=== PATIENT | female | born 1950 | race Caucasian/White ===

== ENCOUNTER 2021-11-13 23:17 | Inpatient (IN) | payer OTHER, MEDICARE ==
[~2021-11-13 23:17] MED LIST: Iopamidol-370 76% 500 ML 1 ML ONE
[2021-11-13 23:33] LABS: #Basophils 0.1 thou/uL (0.0-0.2); #Eosinphils 0.1 thou/uL (0.0-0.7); #Lymphocytes 3.2 thou/uL (1.20-3.40); #Monocytes 1.1 thou/uL (0.11-0.59); #Neutrophils 10.6 thou/uL (1.40-6.50); %Basophils 0.7 % (0.0-1.0); %Eosinophils 0.8 % (0.0-10.0); %Lymphocytes 21.2 % (21.0-51.0); %Monocytes 7.1 % (0.0-10.0); %Neutrophils 70.2 % (42.0-75.0); Hemoglobin 12.5 g/dL (12.0-16.0); Mean Corpuscular HGB CONC 33.9 g/dL (32.0-36.0); Mean Corpuscular Hemoglobin 32.9 pg (27.0-31.0); Mean Platelet Volume 5.9 fL (7.4-10.4); Platelet Count 297 thou/uL (130-400); RBC Distribution Width 12.5 % (11.5-14.5); White Blood Cell (WBC) Count 15.1 thou/uL (4.8-10.8)
[2021-11-13] MEDS ORDERED: Ketamine 50 MG/ML (10ML VIAL) ONE (23:54)
[2021-11-13 23:55] LABS: ALT (SGPT) 30 U/L (8-55); AST (SGOT) 37 U/L (5-34); Albumin 3.9 g/dL (3.4-4.8); Alkaline Phosphatase 95 U/L (40-110); Anion Gap 18 mmol/L (10-20); BUN (Urea Nitrogen) 15 mg/dL (9.8-20.1); Bilirubin, Total 0.4 mg/dL (0.2-1.2); Calc. Creatinine Clearance 0 mL/min (70-130); Calcium 9.3 mg/dL (7.8-10.44); Carbon Dioxide 23 mmol/L (23-31); Chloride 97 mmol/L (98-107); Globulin 2.9 g/dL (2.4-3.5); Glucose 134 mg/dL (80-115); Lipase 12 U/L (8-78); Potassium 4.1 mmol/L (3.5-5.1); Protein, Total 6.8 g/dL (5.8-8.1); Sodium 134 mmol/L (136-145)
[2021-11-14] MEDS ORDERED: Lorazepam 2 MG/ML VIAL ONE (00:05)
[2021-11-14] MEDS ORDERED: Morphine 4 MG/ML VIAL ONE (00:37)
[2021-11-14] MEDS ORDERED: Ondansetron PF 4 MG/2 ML Vial ONE (00:38)
[2021-11-14] MEDS ORDERED: hydrALAZINE 20 MG/ML VIAL SLOW IVP PRN (01:22)
[2021-11-14] MEDS ORDERED: traMADol HCl 50 MG TAB PO PRN (01:26)
[2021-11-14] MEDS ORDERED: Sodium Chloride 0.9% 1,000 ML IV SCH ×3 (01:30→12:45)
[2021-11-14] MEDS ORDERED: Ketorolac Tromethamine 30 MG/ML VIAL IVP SCH ×3 (01:30→18:00)
[2021-11-14] MEDS ORDERED: Hydrocortisone Sod Succ/PF 100 mg/2 ml Vial IVP SCH ×2 (01:45→10:00)
[2021-11-14] MEDS ORDERED: Cyclobenzaprine 10 MG TAB ONE (01:47)
[2021-11-14] MEDS ORDERED: Ketorolac Tromethamine 30 MG/ML VIAL ONE (01:47)
[2021-11-14] MEDS: Ondansetron PF 4 MG/2 ML Vial IVP PRN ×3 (04:32→20:11)
[2021-11-14] MEDS ORDERED: traMADol HCl 50 MG TAB PO SCH ×2 (06:00→12:45)
[2021-11-14 06:02] LABS: Lactic Acid 1.6 mmol/L (0.5-2.2)
[2021-11-14 06:08] LABS: Anion Gap 14 mmol/L (10-20); BUN (Urea Nitrogen) 20 mg/dL (9.8-20.1); Calc. Creatinine Clearance 49 mL/min (70-130); Calcium 8.2 mg/dL (7.8-10.44); Carbon Dioxide 27 mmol/L (23-31); Chloride 98 mmol/L (98-107); Glucose 142 mg/dL (80-115); Magnesium 1.5 mg/dL (1.6-2.6); Phosphorus 3.5 mg/dL (2.3-4.7); Potassium 4.8 mmol/L (3.5-5.1); Sodium 134 mmol/L (136-145)
[2021-11-14] MEDS: Cyclobenzaprine 10 MG TAB PO PRN ×2 (06:12→21:22)
[2021-11-14] MEDS: Acetaminophen 500 MG TAB PO SCH ×2 (06:13→11:32)
[2021-11-14 06:27] LABS: #Lymphocytes 0.8 thou/uL (1.20-3.40); #Monocytes 0.8 thou/uL (0.11-0.59); #Neutrophils 10.6 thou/uL (1.40-6.50); %Basophils 0.1 % (0.0-1.0); %Eosinophils 0.1 % (0.0-10.0); %Lymphocytes 6.6 % (21.0-51.0); %Monocytes 6.1 % (0.0-10.0); Mean Corpuscular HGB CONC 34.3 g/dL (32.0-36.0); Mean Corpuscular Hemoglobin 33.1 pg (27.0-31.0); Mean Corpuscular Volume 96.4 fL (78.0-98.0); Mean Platelet Volume 5.9 fL (7.4-10.4); Platelet Count 217 thou/uL (130-400); RBC Distribution Width 12.2 % (11.5-14.5); Red Blood Cell (RBC) Count 2.72 mill/uL (4.20-5.40); White Blood Cell (WBC) Count 12.2 thou/uL (4.8-10.8)
[2021-11-14 06:54] LABS: #Lymphocytes 0.7 thou/uL (1.20-3.40); #Monocytes 0.7 thou/uL (0.11-0.59); #Neutrophils 10.6 thou/uL (1.40-6.50); %Basophils 0.1 % (0.0-1.0); %Eosinophils 0.3 % (0.0-10.0); %Lymphocytes 5.9 % (21.0-51.0); %Monocytes 5.7 % (0.0-10.0); Hemoglobin 7.9 g/dL (12.0-16.0); Mean Corpuscular HGB CONC 33.6 g/dL (32.0-36.0); Mean Corpuscular Hemoglobin 32.6 pg (27.0-31.0); Mean Corpuscular Volume 97.1 fL (78.0-98.0); Mean Platelet Volume 6.5 fL (7.4-10.4); Platelet Count 206 thou/uL (130-400); RBC Distribution Width 12.2 % (11.5-14.5); Red Blood Cell (RBC) Count 2.42 mill/uL (4.20-5.40); White Blood Cell (WBC) Count 12.1 thou/uL (4.8-10.8)
[2021-11-14 07:21] LABS: Bacteria/HPF None Seen HPF (None Seen); Bilirubin Negative (Negative); Blood, Urine Negative (Negative); Clarity Clear (Clear); Glucose, Urine (Dipstick) Normal (Negative); Ketone, Urine Negative (Negative); Leukocyte Negative Leu/uL (Negative); Nitrite Negative (Negative); Protein, Urine (Dipstick) Negative (Neg-Trace); RBC/HPF 0-3 HPF (0-3); Specific Gravity, Urine 1.028 (1.002-1.036); Squamous Epithelial 0-3 HPF (0-3); Urobilinogen Normal mg/dL (Less than 2); WBC/HPF 0-3 HPF (0-3)
[2021-11-14 07:33] LABS: Urine Culture Reflex No No
[2021-11-14] MEDS: Sodium Chloride 0.9% 1,000 ML IV SCH ×3 (08:30→13:05)
[2021-11-14] MEDS ORDERED: HYDROcodone/Acetaminophen 7.5/325 mg Tablet PO PRN (08:36)
[2021-11-14 08:41] LABS: #Lymphocytes 0.8 thou/uL (1.20-3.40); #Monocytes 0.7 thou/uL (0.11-0.59); #Neutrophils 8.5 thou/uL (1.40-6.50); %Basophils 0.1 % (0.0-1.0); %Eosinophils 0.2 % (0.0-10.0); %Lymphocytes 8.3 % (21.0-51.0); %Monocytes 7.1 % (0.0-10.0); %Neutrophils 84.4 % (42.0-75.0); Mean Corpuscular HGB CONC 33.8 g/dL (32.0-36.0); Mean Corpuscular Volume 97.6 fL (78.0-98.0); Mean Platelet Volume 6.2 fL (7.4-10.4); Platelet Count 168 thou/uL (130-400); RBC Distribution Width 12.3 % (11.5-14.5); White Blood Cell (WBC) Count 10.1 thou/uL (4.8-10.8)
[2021-11-14] MEDS: Morphine 2 MG/ML VIAL SLOW IVP PRN ×3 (08:44→23:57)
[2021-11-14] MEDS ORDERED: Magnesium Sulfate 3 GM in Sodium Chloride 0.9% 100 ML IVPB SCH (09:00)
[2021-11-14] MEDS ORDERED: Famotidine 40 MG/4 ML VIAL SLOW IVP SCH (09:00)
[2021-11-14] MEDS ORDERED: Gabapentin 100 MG CAP PO SCH ×2 (09:00)
[2021-11-14] MEDS: Polyethylene Glycol 3350 17 GM Packet PO SCH (09:12)
[2021-11-14] MEDS: Gabapentin 300 MG CAP PO SCH ×3 (09:12→20:15)
[2021-11-14] MEDS: Senokot S 8.6-50 MG TAB PO SCH ×2 (09:12→20:11)
[2021-11-14 09:43] LABS: INR-International Normal Ratio 1.4; PTT 36.1 sec (22.9-36.1); Prothrombin Time 17.2 sec (12.0-14.7)
[2021-11-14] MEDS: Promethazine HCl 25 MG/ML VIAL IM PRN (11:24)
[2021-11-14] MEDS: Scopolamine 1.5 mg/72 hour Patch TD SCH (11:24)
[2021-11-14 11:43] LABS: Hemoglobin 8.9 g/dL (12.0-16.0); Mean Corpuscular Hemoglobin 33.3 pg (27.0-31.0); Platelet Count 129 thou/uL (130-400); RBC Distribution Width 12.6 % (11.5-14.5); Red Blood Cell (RBC) Count 2.66 mill/uL (4.20-5.40); White Blood Cell (WBC) Count 8.9 thou/uL (4.8-10.8)
[2021-11-14 11:44] LABS: #Eosinphils 0.1 thou/uL (0.0-0.7); #Lymphocytes 0.8 thou/uL (1.20-3.40); #Monocytes 0.5 thou/uL (0.11-0.59); #Neutrophils 7.5 thou/uL (1.40-6.50); %Basophils 0.1 % (0.0-1.0); %Eosinophils 0.6 % (0.0-10.0); %Lymphocytes 9.1 % (21.0-51.0); %Monocytes 5.6 % (0.0-10.0); %Neutrophils 84.6 % (42.0-75.0)
[2021-11-14] MEDS ORDERED: HYDROcodone/Acetaminophen 7.5/325 mg Tablet PO SCH (12:45)
[2021-11-14] MEDS: HYDROcodone/Acetaminophen 7.5/325 mg Tablet PO SCH (16:52)
[2021-11-14 17:04] LABS: #Lymphocytes 1.3 thou/uL (1.20-3.40); #Neutrophils 8.8 thou/uL (1.40-6.50); %Basophils 0.3 % (0.0-1.0); %Eosinophils 0.2 % (0.0-10.0); %Lymphocytes 11.4 % (21.0-51.0); %Monocytes 8.9 % (0.0-10.0); %Neutrophils 79.2 % (42.0-75.0); Hemoglobin 6.8 g/dL (12.0-16.0); Mean Corpuscular HGB CONC 35.2 g/dL (32.0-36.0); Mean Corpuscular Hemoglobin 33.2 pg (27.0-31.0); Mean Corpuscular Volume 94.4 fL (78.0-98.0); Mean Platelet Volume 6.1 fL (7.4-10.4); Platelet Count 126 thou/uL (130-400); RBC Distribution Width 12.9 % (11.5-14.5); Red Blood Cell (RBC) Count 2.04 mill/uL (4.20-5.40); White Blood Cell (WBC) Count 11.1 thou/uL (4.8-10.8)
[2021-11-14 17:29] LABS: ALT (SGPT) 24 U/L (8-55); AST (SGOT) 44 U/L (5-34); Albumin 2.8 g/dL (3.4-4.8); Alkaline Phosphatase 46 U/L (40-110); Anion Gap 12 mmol/L (10-20); BUN (Urea Nitrogen) 27 mg/dL (9.8-20.1); Bilirubin, Direct 0.6 mg/dL (0.1-0.3); Bilirubin, Total 1.1 mg/dL (0.2-1.2); CK (CPK) 932 U/L (29-168); Calc. Creatinine Clearance 61 mL/min (70-130); Calcium 7.4 mg/dL (7.8-10.44); Carbon Dioxide 21 mmol/L (23-31); Chloride 107 mmol/L (98-107); Glucose 128 mg/dL (80-115); Magnesium 2.4 mg/dL (1.6-2.6); Phosphorus 3.7 mg/dL (2.3-4.7); Potassium 4.2 mmol/L (3.5-5.1); Protein, Total 4.6 g/dL (5.8-8.1); Sodium 136 mmol/L (136-145)
[2021-11-15] MEDS: HYDROcodone/Acetaminophen 7.5/325 mg Tablet PO SCH ×5 (00:47→23:20)
[2021-11-15] MEDS: Lorazepam 2 MG/ML VIAL SLOW IVP PRN ×2 (00:52→20:35)
[2021-11-15] MEDS: Morphine 2 MG/ML VIAL SLOW IVP PRN ×4 (02:01→17:55)
[2021-11-15] MEDS: Sodium Chloride 0.9% 1,000 ML IV SCH ×4 (04:25→22:00)
[2021-11-15 04:54] LABS: INR-International Normal Ratio 1.2; PTT 30.4 sec (22.9-36.1); Prothrombin Time 15.2 sec (12.0-14.7)
[2021-11-15 05:07] LABS: ALT (SGPT) 23 U/L (8-55); AST (SGOT) 42 U/L (5-34); Albumin 3.3 g/dL (3.4-4.8); Alkaline Phosphatase 43 U/L (40-110); Anion Gap 12 mmol/L (10-20); BUN (Urea Nitrogen) 26 mg/dL (9.8-20.1); Bilirubin, Direct 0.6 mg/dL (0.1-0.3); Bilirubin, Total 1.2 mg/dL (0.2-1.2); CK (CPK) 1056 U/L (29-168); Calc. Creatinine Clearance 77 mL/min (70-130); Calcium 7.8 mg/dL (7.8-10.44); Carbon Dioxide 23 mmol/L (23-31); Chloride 107 mmol/L (98-107); Glucose 103 mg/dL (80-115); Magnesium 2.5 mg/dL (1.6-2.6); Phosphorus 3.1 mg/dL (2.3-4.7); Potassium 3.7 mmol/L (3.5-5.1); Protein, Total 5.1 g/dL (5.8-8.1); Sodium 138 mmol/L (136-145)
[2021-11-15 05:22] LABS: #Eosinphils 0.1 thou/uL (0.0-0.7); #Lymphocytes 1.3 thou/uL (1.20-3.40); #Monocytes 0.6 thou/uL (0.11-0.59); #Neutrophils 6.7 thou/uL (1.40-6.50); %Basophils 0.1 % (0.0-1.0); %Eosinophils 0.6 % (0.0-10.0); %Monocytes 6.8 % (0.0-10.0); %Neutrophils 77.5 % (42.0-75.0); Hemoglobin 6.5 g/dL (12.0-16.0); Mean Corpuscular HGB CONC 34.4 g/dL (32.0-36.0); Mean Corpuscular Hemoglobin 31.9 pg (27.0-31.0); Mean Corpuscular Volume 92.6 fL (78.0-98.0); Mean Platelet Volume 6.3 fL (7.4-10.4); Platelet Count 101 thou/uL (130-400); Platelet Morphology Comment Appears Decreased; RBC Distribution Width 13.1 % (11.5-14.5); RBC Morphology Normal; Red Blood Cell (RBC) Count 2.05 mill/uL (4.20-5.40); White Blood Cell (WBC) Count 8.6 thou/uL (4.8-10.8)
[2021-11-15] MEDS: Levothyroxine Sodium 100 MCG TAB PO SCH (05:42)
[2021-11-15] MEDS: Cyclobenzaprine 10 MG TAB PO PRN ×3 (05:42→20:35)
[2021-11-15] MEDS: Polyethylene Glycol 3350 17 GM Packet PO SCH (08:00)
[2021-11-15] MEDS: Senokot S 8.6-50 MG TAB PO SCH ×2 (08:00→20:37)
[2021-11-15] MEDS: Gabapentin 300 MG CAP PO SCH ×3 (08:00→20:36)
[2021-11-15] MEDS: Pantoprazole 40 MG VIAL IVP SCH (08:01)
[2021-11-15] MEDS: Ondansetron PF 4 MG/2 ML Vial IVP PRN (08:45)
[2021-11-15] MEDS ORDERED: Famotidine 40 MG/4 ML VIAL SLOW IVP SCH (09:00)
[2021-11-15] MEDS ORDERED: Furosemide 40 MG/4 ML VIAL ONE (09:05)
[2021-11-15 16:50] LABS: #Monocytes 0.7 thou/uL (0.11-0.59); #Neutrophils 6.6 thou/uL (1.40-6.50); %Basophils 0.3 % (0.0-1.0); %Eosinophils 0.4 % (0.0-10.0); %Lymphocytes 12.3 % (21.0-51.0); Hemoglobin 6.5 g/dL (12.0-16.0); Mean Corpuscular HGB CONC 34.1 g/dL (32.0-36.0); Mean Corpuscular Hemoglobin 31.5 pg (27.0-31.0); Mean Corpuscular Volume 92.3 fL (78.0-98.0); Mean Platelet Volume 6.1 fL (7.4-10.4); Platelet Count 117 thou/uL (130-400); RBC Distribution Width 13.2 % (11.5-14.5); Red Blood Cell (RBC) Count 2.07 mill/uL (4.20-5.40); White Blood Cell (WBC) Count 8.3 thou/uL (4.8-10.8)
[2021-11-15 17:13] LABS: Anion Gap 12 mmol/L (10-20); BUN (Urea Nitrogen) 20 mg/dL (9.8-20.1); Calc. Creatinine Clearance 98 mL/min (70-130); Calcium 7.8 mg/dL (7.8-10.44); Carbon Dioxide 23 mmol/L (23-31); Chloride 107 mmol/L (98-107); Glucose 92 mg/dL (80-115); Magnesium 2.4 mg/dL (1.6-2.6); Phosphorus 2.2 mg/dL (2.3-4.7); Sodium 138 mmol/L (136-145)
[2021-11-15] MEDS ORDERED: Furosemide 20 MG/2 ML VIAL SLOW IVP SCH (17:30)
[2021-11-15] MEDS ORDERED: Acetaminophen 325 MG TAB PO PRN (18:48)
[2021-11-16] MEDS: Morphine 2 MG/ML VIAL SLOW IVP PRN (00:05)
[2021-11-16 05:59] LABS: #Eosinphils 0.1 thou/uL (0.0-0.7); #Lymphocytes 1.1 thou/uL (1.20-3.40); #Monocytes 0.6 thou/uL (0.11-0.59); %Basophils 0.1 % (0.0-1.0); %Lymphocytes 14.7 % (21.0-51.0); %Monocytes 7.6 % (0.0-10.0); %Neutrophils 76.7 % (42.0-75.0); Hemoglobin 7.2 g/dL (12.0-16.0); Mean Corpuscular HGB CONC 34.8 g/dL (32.0-36.0); Mean Corpuscular Volume 91.8 fL (78.0-98.0); Mean Platelet Volume 6.3 fL (7.4-10.4); Platelet Count 113 thou/uL (130-400); RBC Distribution Width 13.8 % (11.5-14.5); Red Blood Cell (RBC) Count 2.24 mill/uL (4.20-5.40); White Blood Cell (WBC) Count 7.8 thou/uL (4.8-10.8)
[2021-11-16] MEDS: HYDROcodone/Acetaminophen 7.5/325 mg Tablet PO SCH ×4 (06:02→23:34)
[2021-11-16] MEDS: Levothyroxine Sodium 100 MCG TAB PO SCH (06:02)
[2021-11-16] MEDS: Cyclobenzaprine 10 MG TAB PO PRN ×3 (06:02→21:45)
[2021-11-16 06:32] LABS: Anion Gap 11 mmol/L (10-20); BUN (Urea Nitrogen) 21 mg/dL (9.8-20.1); Calc. Creatinine Clearance 103 mL/min (70-130); Calcium 7.8 mg/dL (7.8-10.44); Carbon Dioxide 24 mmol/L (23-31); Chloride 106 mmol/L (98-107); Glucose 90 mg/dL (80-115); Magnesium 2.3 mg/dL (1.6-2.6); Potassium 3.7 mmol/L (3.5-5.1); Sodium 137 mmol/L (136-145)
[2021-11-16 06:33] LABS: CK (CPK) 1103 U/L (29-168); Phosphorus 2.2 mg/dL (2.3-4.7)
[2021-11-16] MEDS ORDERED: Bisoprolol Fumarate/HCTZ 5 mg/6.25 mg Tablet PO SCH (09:00)
[2021-11-16] MEDS ORDERED: Furosemide 20 MG/2 ML VIAL SLOW IVP SCH ×2 (09:00)
[2021-11-16] MEDS ORDERED: Potassium Phosphate 30 MMOL in Sodium Chloride 0.9% 250 ML 250 ML IVPB SCH (09:00)
[2021-11-16] MEDS: Gabapentin 300 MG CAP PO SCH ×3 (09:13→20:25)
[2021-11-16] MEDS: Polyethylene Glycol 3350 17 GM Packet PO SCH (09:13)
[2021-11-16] MEDS: Bisoprolol Fumarate/HCTZ 5 mg/6.25 mg Tablet PO SCH (09:13)
[2021-11-16] MEDS: Pantoprazole 40 MG VIAL IVP SCH (09:13)
[2021-11-16] MEDS: Senokot S 8.6-50 MG TAB PO SCH ×2 (09:14→20:25)
[2021-11-16] MEDS: Acetaminophen 325 MG TAB PO SCH ×2 (12:04→17:20)
[2021-11-16] MEDS: traMADol HCl 50 MG TAB PO PRN ×2 (12:05→17:51)
[2021-11-16] MEDS: HYDROcodone/Acetaminophen 5/325 mg Tablet PO PRN (21:44)
[2021-11-17] MEDS: traMADol HCl 50 MG TAB PO PRN ×2 (00:43→20:29)
[2021-11-17] MEDS: Promethazine HCl 25 MG/ML VIAL IM PRN (00:48)
[2021-11-17] MEDS: HYDROcodone/Acetaminophen 7.5/325 mg Tablet PO SCH ×3 (05:02→17:47)
[2021-11-17] MEDS: Cyclobenzaprine 10 MG TAB PO PRN ×2 (05:02→13:44)
[2021-11-17] MEDS: Levothyroxine Sodium 100 MCG TAB PO SCH (05:03)
[2021-11-17 06:10] LABS: #Eosinphils 0.2 thou/uL (0.0-0.7); #Lymphocytes 1.5 thou/uL (1.20-3.40); #Monocytes 0.6 thou/uL (0.11-0.59); #Neutrophils 5.2 thou/uL (1.40-6.50); %Eosinophils 3.1 % (0.0-10.0); %Lymphocytes 19.6 % (21.0-51.0); %Monocytes 8.1 % (0.0-10.0); %Neutrophils 69.1 % (42.0-75.0); Hemoglobin 7.1 g/dL (12.0-16.0); Mean Corpuscular HGB CONC 34.1 g/dL (32.0-36.0); Mean Corpuscular Hemoglobin 31.8 pg (27.0-31.0); Mean Corpuscular Volume 93.5 fL (78.0-98.0); Mean Platelet Volume 6.4 fL (7.4-10.4); Platelet Count 153 thou/uL (130-400); RBC Distribution Width 13.8 % (11.5-14.5); Red Blood Cell (RBC) Count 2.22 mill/uL (4.20-5.40); White Blood Cell (WBC) Count 7.5 thou/uL (4.8-10.8)
[2021-11-17 06:45] LABS: Anion Gap 10 mmol/L (10-20); BUN (Urea Nitrogen) 16 mg/dL (9.8-20.1); Calc. Creatinine Clearance 111 mL/min (70-130); Calcium 7.9 mg/dL (7.8-10.44); Carbon Dioxide 26 mmol/L (23-31); Chloride 106 mmol/L (98-107); Glucose 85 mg/dL (80-115); Magnesium 2.3 mg/dL (1.6-2.6); Phosphorus 2.7 mg/dL (2.3-4.7); Potassium 4.2 mmol/L (3.5-5.1); Sodium 138 mmol/L (136-145)
[2021-11-17] MEDS: Enoxaparin Sodium 40 MG/0.4 ML SYRINGE SC SCH (10:01)
[2021-11-17] MEDS: Senokot S 8.6-50 MG TAB PO SCH ×2 (10:02→20:30)
[2021-11-17] MEDS: Gabapentin 300 MG CAP PO SCH ×3 (10:02→20:28)
[2021-11-17] MEDS: Polyethylene Glycol 3350 17 GM Packet PO SCH (10:03)
[2021-11-17] MEDS: Scopolamine 1.5 mg/72 hour Patch TD SCH (11:27)
[2021-11-17] MEDS: Bisoprolol Fumarate/HCTZ 5 mg/6.25 mg Tablet PO SCH (12:10)
[2021-11-17] MEDS ORDERED: PHOS-NAK 1 PKT PACK PO SCH (12:30)
[2021-11-17] MEDS: HYDROcodone/Acetaminophen 5/325 mg Tablet PO PRN (13:45)
[2021-11-18] MEDS: Cyclobenzaprine 10 MG TAB PO PRN ×2 (00:02→09:00)
[2021-11-18] MEDS: HYDROcodone/Acetaminophen 7.5/325 mg Tablet PO SCH ×4 (00:02→18:00)
[2021-11-18] MEDS: traMADol HCl 50 MG TAB PO PRN ×2 (03:41→20:39)
[2021-11-18] MEDS: Levothyroxine Sodium 100 MCG TAB PO SCH (04:58)
[2021-11-18 05:49] LABS: #Eosinphils 0.2 thou/uL (0.0-0.7); #Lymphocytes 1.9 thou/uL (1.20-3.40); #Monocytes 0.9 thou/uL (0.11-0.59); #Neutrophils 6.6 thou/uL (1.40-6.50); %Basophils 0.3 % (0.0-1.0); %Eosinophils 1.6 % (0.0-10.0); %Lymphocytes 19.8 % (21.0-51.0); %Monocytes 9.5 % (0.0-10.0); %Neutrophils 68.7 % (42.0-75.0); Hemoglobin 7.7 g/dL (12.0-16.0); Mean Corpuscular Hemoglobin 31.9 pg (27.0-31.0); Mean Corpuscular Volume 93.8 fL (78.0-98.0); Mean Platelet Volume 6.5 fL (7.4-10.4); Platelet Count 241 thou/uL (130-400); RBC Distribution Width 13.9 % (11.5-14.5); Red Blood Cell (RBC) Count 2.41 mill/uL (4.20-5.40); White Blood Cell (WBC) Count 9.5 thou/uL (4.8-10.8)
[2021-11-18 06:09] LABS: Anion Gap 12 mmol/L (10-20); BUN (Urea Nitrogen) 15 mg/dL (9.8-20.1); Calc. Creatinine Clearance 108 mL/min (70-130); Calcium 8.3 mg/dL (7.8-10.44); Carbon Dioxide 26 mmol/L (23-31); Chloride 104 mmol/L (98-107); Glucose 95 mg/dL (80-115); Magnesium 2.2 mg/dL (1.6-2.6); Phosphorus 3.1 mg/dL (2.3-4.7); Potassium 4.5 mmol/L (3.5-5.1); Sodium 137 mmol/L (136-145)
[2021-11-18] MEDS: Gabapentin 300 MG CAP PO SCH ×3 (08:58→20:40)
[2021-11-18] MEDS: Senokot S 8.6-50 MG TAB PO SCH ×2 (09:00→20:40)
[2021-11-18] MEDS ORDERED: PHOS-NAK 1 PKT PACK PO SCH (09:00)
[2021-11-18] MEDS ORDERED: Non-Formulary Item 1 EACH (Diltiazem Hcl [Diltiazem Hcl] 120 MG Tablet) PO SCH (09:00)
[2021-11-18] MEDS: Enoxaparin Sodium 40 MG/0.4 ML SYRINGE SC SCH (09:02)
[2021-11-18] MEDS: Polyethylene Glycol 3350 17 GM Packet PO SCH (09:03)
[2021-11-18] MEDS: Bisoprolol Fumarate/HCTZ 5 mg/6.25 mg Tablet PO SCH (10:26)
[2021-11-18] MEDS: Methocarbamol 500 MG TAB PO PRN (12:59)
[2021-11-19] MEDS: Methocarbamol 500 MG TAB PO PRN ×3 (00:14→21:52)
[2021-11-19] MEDS: HYDROcodone/Acetaminophen 7.5/325 mg Tablet PO SCH ×5 (00:14→23:55)
[2021-11-19] MEDS: Levothyroxine Sodium 100 MCG TAB PO SCH (05:17)
[2021-11-19] MEDS: Enoxaparin Sodium 40 MG/0.4 ML SYRINGE SC SCH (09:41)
[2021-11-19] MEDS: Gabapentin 300 MG CAP PO SCH ×3 (09:42→20:25)
[2021-11-19] MEDS: Senokot S 8.6-50 MG TAB PO SCH ×2 (09:43→20:25)
[2021-11-19] MEDS: Polyethylene Glycol 3350 17 GM Packet PO SCH (09:43)
[2021-11-19] MEDS: Bisoprolol Fumarate/HCTZ 5 mg/6.25 mg Tablet PO SCH (09:53)
[2021-11-19] MEDS: cloNIDine 0.1 MG TAB PO SCH ×3 (12:12→23:55)
[2021-11-19] MEDS: traMADol HCl 50 MG TAB PO PRN ×2 (12:14→18:44)
[2021-11-19] MEDS: Ferrous Sulfate 325 MG TAB PO SCH (18:39)
[2021-11-19] MEDS: Ascorbic Acid 500 mg Chewable Tablet PO SCH (20:25)
[2021-11-19] MEDS: HYDROcodone/Acetaminophen 5/325 mg Tablet PO PRN (21:52)
[2021-11-20] MEDS: traMADol HCl 50 MG TAB PO PRN ×2 (05:30→14:04)
[2021-11-20] MEDS: cloNIDine 0.1 MG TAB PO SCH ×4 (05:31→23:03)
[2021-11-20] MEDS: Levothyroxine Sodium 100 MCG TAB PO SCH (05:31)
[2021-11-20] MEDS: HYDROcodone/Acetaminophen 7.5/325 mg Tablet PO SCH ×4 (05:31→23:03)
[2021-11-20] MEDS: Enoxaparin Sodium 40 MG/0.4 ML SYRINGE SC SCH (09:09)
[2021-11-20] MEDS: Gabapentin 300 MG CAP PO SCH ×3 (09:11→21:24)
[2021-11-20] MEDS: Ascorbic Acid 500 mg Chewable Tablet PO SCH ×2 (09:11→21:24)
[2021-11-20] MEDS: Ferrous Sulfate 325 MG TAB PO SCH ×2 (09:11→19:18)
[2021-11-20] MEDS: Senokot S 8.6-50 MG TAB PO SCH ×2 (09:11→21:24)
[2021-11-20] MEDS: Bisoprolol Fumarate/HCTZ 5 mg/6.25 mg Tablet PO SCH (09:11)
[2021-11-20] MEDS: Polyethylene Glycol 3350 17 GM Packet PO SCH (09:16)
[2021-11-20] MEDS: Scopolamine 1.5 mg/72 hour Patch TD SCH (12:31)
[2021-11-20] MEDS: Cyclobenzaprine 10 MG TAB PO PRN (14:04)
[2021-11-20 23:32] LABS: #Eosinphils 0.1 thou/uL (0.0-0.7); #Lymphocytes 0.9 thou/uL (1.20-3.40); #Monocytes 0.1 thou/uL (0.11-0.59); #Neutrophils 6.4 thou/uL (1.40-6.50); %Basophils 0.2 % (0.0-1.0); %Eosinophils 0.9 % (0.0-10.0); %Lymphocytes 12.6 % (21.0-51.0); %Monocytes 1.1 % (0.0-10.0); %Neutrophils 85.2 % (42.0-75.0); Hemoglobin 8.5 g/dL (12.0-16.0); Mean Corpuscular HGB CONC 32.9 g/dL (32.0-36.0); Mean Corpuscular Hemoglobin 31.9 pg (27.0-31.0); Mean Corpuscular Volume 96.9 fL (78.0-98.0); Mean Platelet Volume 6.1 fL (7.4-10.4); Platelet Count 423 thou/uL (130-400); RBC Distribution Width 14.4 % (11.5-14.5); Red Blood Cell (RBC) Count 2.66 mill/uL (4.20-5.40); White Blood Cell (WBC) Count 7.5 thou/uL (4.8-10.8)
[2021-11-20 23:51] LABS: Anion Gap 17 mmol/L (10-20); BUN (Urea Nitrogen) 31 mg/dL (9.8-20.1); Calc. Creatinine Clearance 59 mL/min (70-130); Calcium 8.3 mg/dL (7.8-10.44); Carbon Dioxide 22 mmol/L (23-31); Chloride 99 mmol/L (98-107); Glucose 117 mg/dL (80-115); Sodium 134 mmol/L (136-145)
[2021-11-21] MEDS ORDERED: Furosemide 20 MG/2 ML VIAL SLOW IVP SCH (00:15)
[2021-11-21] MEDS: Levothyroxine Sodium 100 MCG TAB PO SCH (04:34)
[2021-11-21] MEDS: cloNIDine 0.1 MG TAB PO SCH ×3 (05:48→16:17)
[2021-11-21] MEDS: HYDROcodone/Acetaminophen 7.5/325 mg Tablet PO SCH ×3 (05:49→19:25)
[2021-11-21 08:20] LABS: #Eosinphils 0.1 thou/uL (0.0-0.7); #Lymphocytes 1.9 thou/uL (1.20-3.40); #Monocytes 1.2 thou/uL (0.11-0.59); #Neutrophils 14.3 thou/uL (1.40-6.50); %Basophils 0.1 % (0.0-1.0); %Eosinophils 0.3 % (0.0-10.0); %Lymphocytes 10.7 % (21.0-51.0); %Neutrophils 81.9 % (42.0-75.0); Hemoglobin 7.6 g/dL (12.0-16.0); Mean Corpuscular HGB CONC 32.5 g/dL (32.0-36.0); Mean Corpuscular Hemoglobin 31.6 pg (27.0-31.0); Mean Corpuscular Volume 97.2 fL (78.0-98.0); Mean Platelet Volume 5.9 fL (7.4-10.4); Platelet Count 378 thou/uL (130-400); RBC Distribution Width 14.6 % (11.5-14.5); White Blood Cell (WBC) Count 17.4 thou/uL (4.8-10.8)
[2021-11-21 08:41] LABS: Anion Gap 15 mmol/L (10-20); BUN (Urea Nitrogen) 37 mg/dL (9.8-20.1); CK (CPK) 284 U/L (29-168); Calc. Creatinine Clearance 50 mL/min (70-130); Calcium 8.3 mg/dL (7.8-10.44); Carbon Dioxide 25 mmol/L (23-31); Chloride 99 mmol/L (98-107); Glucose 110 mg/dL (80-115); Magnesium 2.1 mg/dL (1.6-2.6); Phosphorus 4.6 mg/dL (2.3-4.7); Potassium 3.8 mmol/L (3.5-5.1); Sodium 135 mmol/L (136-145)
[2021-11-21] MEDS: HYDROcodone/Acetaminophen 5/325 mg Tablet PO PRN ×2 (09:20→16:13)
[2021-11-21] MEDS: Senokot S 8.6-50 MG TAB PO SCH ×2 (09:22→21:45)
[2021-11-21] MEDS: Gabapentin 300 MG CAP PO SCH ×3 (09:22→21:45)
[2021-11-21] MEDS: Ferrous Sulfate 325 MG TAB PO SCH ×2 (09:23→16:16)
[2021-11-21] MEDS: Enoxaparin Sodium 40 MG/0.4 ML SYRINGE SC SCH (09:24)
[2021-11-21] MEDS: Ascorbic Acid 500 mg Chewable Tablet PO SCH ×2 (09:24→21:45)
[2021-11-21] MEDS: Bisoprolol Fumarate/HCTZ 5 mg/6.25 mg Tablet PO SCH (09:25)
[2021-11-21] MEDS: Polyethylene Glycol 3350 17 GM Packet PO SCH (09:26)
[2021-11-21] MEDS: Sodium Chloride 0.9% 1,000 ML IV SCH (10:44)
[2021-11-21] MEDS ORDERED: Acetaminophen 325 MG TAB PO PRN (12:52)
[2021-11-21] MEDS: cefTRIAXone\\ROCEPHIN 2 GM in Sodium Chloride 0.9% 100 ML IVPB SCH (13:52)
[2021-11-21] MEDS: Cyclobenzaprine 10 MG TAB PO PRN (13:54)
[2021-11-21] MEDS: traMADol HCl 50 MG TAB PO PRN (16:10)
[2021-11-21 16:36] LABS: Bacteria/HPF 4+ HPF (None Seen); Bilirubin Negative (Negative); Blood, Urine 3+ (Negative); Clarity Turbid (Clear); Glucose, Urine (Dipstick) Normal (Negative); Ketone, Urine Negative (Negative); Leukocyte 500 Leu/uL (Negative); Nitrite Negative (Negative); Protein, Urine (Dipstick) 30 mg/dL (Neg-Trace); Specific Gravity, Urine 1.011 (1.002-1.036); Squamous Epithelial None Seen HPF (0-3); Urobilinogen Normal mg/dL (Less than 2); WBC/HPF Greater than 50 HPF (0-3)
[2021-11-21 16:38] LABS: Urine Culture Reflex Yes Yes
[2021-11-22] MEDS: HYDROcodone/Acetaminophen 7.5/325 mg Tablet PO SCH ×5 (00:15→23:09)
[2021-11-22] MEDS: cloNIDine 0.1 MG TAB PO SCH ×5 (00:16→23:11)
[2021-11-22] MEDS: Levothyroxine Sodium 100 MCG TAB PO SCH (05:42)
[2021-11-22] MEDS: Cyclobenzaprine 10 MG TAB PO PRN (05:42)
[2021-11-22] MEDS: Sodium Chloride 0.9% 1,000 ML IV SCH ×3 (05:47→20:40)
[2021-11-22 06:42] LABS: Mean Corpuscular HGB CONC 32.7 g/dL (32.0-36.0); Mean Corpuscular Volume 98.1 fL (78.0-98.0); Mean Platelet Volume 6.5 fL (7.4-10.4); Platelet Count 415 thou/uL (130-400); RBC Distribution Width 14.9 % (11.5-14.5); Red Blood Cell (RBC) Count 2.19 mill/uL (4.20-5.40); White Blood Cell (WBC) Count 22.4 thou/uL (4.8-10.8)
[2021-11-22 06:43] LABS: Anion Gap 14 mmol/L (10-20); BUN (Urea Nitrogen) 50 mg/dL (9.8-20.1); Calc. Creatinine Clearance 37 mL/min (70-130); Carbon Dioxide 24 mmol/L (23-31); Chloride 98 mmol/L (98-107); Glucose 126 mg/dL (80-115); Phosphorus 4.6 mg/dL (2.3-4.7); Sodium 132 mmol/L (136-145)
[2021-11-22 07:30] LABS: Band 52 % (5-11); Lymphocytes 4 % (21-51); MDiff Complete? YES; Monocytes 2 % (0-10); Neutrophil 42 % (42-75); Platelet Morphology Comment Appears Increased; Polychromasia SLIGHT = 2-3 cells (100X) (0-2/hpf); Reflex for Review?? YES
[2021-11-22] MEDS: Gabapentin 300 MG CAP PO SCH ×3 (09:19→20:39)
[2021-11-22] MEDS: Senokot S 8.6-50 MG TAB PO SCH ×2 (09:19→20:39)
[2021-11-22] MEDS: Ferrous Sulfate 325 MG TAB PO SCH ×2 (09:19→16:40)
[2021-11-22] MEDS: Ascorbic Acid 500 mg Chewable Tablet PO SCH ×2 (09:20→20:39)
[2021-11-22] MEDS: Bisoprolol Fumarate/HCTZ 5 mg/6.25 mg Tablet PO SCH (09:21)
[2021-11-22] MEDS: Heparin 5,000 UNITS/ML VIAL SC SCH ×3 (09:22→20:40)
[2021-11-22] MEDS: Polyethylene Glycol 3350 17 GM Packet PO SCH (09:24)
[2021-11-22] MEDS: cefTRIAXone\\ROCEPHIN 2 GM in Sodium Chloride 0.9% 100 ML IVPB SCH (11:56)
[2021-11-23] MEDS: Sodium Chloride 0.9% 1,000 ML IV SCH ×2 (05:18→15:46)
[2021-11-23] MEDS: Levothyroxine Sodium 100 MCG TAB PO SCH (05:20)
[2021-11-23] MEDS: cloNIDine 0.1 MG TAB PO SCH (05:20)
[2021-11-23] MEDS: HYDROcodone/Acetaminophen 7.5/325 mg Tablet PO SCH ×3 (05:20→17:16)
[2021-11-23 05:23] LABS: #Eosinphils 0.1 thou/uL (0.0-0.7); #Monocytes 1.1 thou/uL (0.11-0.59); #Neutrophils 16.8 thou/uL (1.40-6.50); %Basophils 0.2 % (0.0-1.0); %Eosinophils 0.5 % (0.0-10.0); %Lymphocytes 5.5 % (21.0-51.0); %Monocytes 5.6 % (0.0-10.0); %Neutrophils 88.2 % (42.0-75.0); Hemoglobin 8.5 g/dL (12.0-16.0); Mean Corpuscular HGB CONC 32.5 g/dL (32.0-36.0); Mean Corpuscular Hemoglobin 31.5 pg (27.0-31.0); Mean Corpuscular Volume 96.9 fL (78.0-98.0); Mean Platelet Volume 6.4 fL (7.4-10.4); Platelet Count 444 thou/uL (130-400); RBC Distribution Width 14.3 % (11.5-14.5); Red Blood Cell (RBC) Count 2.69 mill/uL (4.20-5.40)
[2021-11-23 06:49] LABS: Anion Gap 15 mmol/L (10-20); BUN (Urea Nitrogen) 41 mg/dL (9.8-20.1); Calc. Creatinine Clearance 55 mL/min (70-130); Calcium 7.9 mg/dL (7.8-10.44); Carbon Dioxide 20 mmol/L (23-31); Chloride 104 mmol/L (98-107); Glucose 115 mg/dL (80-115); Magnesium 2.2 mg/dL (1.6-2.6); Phosphorus 3.3 mg/dL (2.3-4.7); Potassium 3.5 mmol/L (3.5-5.1); Sodium 135 mmol/L (136-145)
[2021-11-23] MEDS: Ferrous Sulfate 325 MG TAB PO SCH ×2 (09:01→16:48)
[2021-11-23] MEDS: Bisoprolol Fumarate/HCTZ 5 mg/6.25 mg Tablet PO SCH (09:02)
[2021-11-23] MEDS: Ascorbic Acid 500 mg Chewable Tablet PO SCH ×2 (09:02→21:24)
[2021-11-23] MEDS: Heparin 5,000 UNITS/ML VIAL SC SCH ×3 (09:03→21:24)
[2021-11-23] MEDS: Gabapentin 300 MG CAP PO SCH ×3 (09:03→21:23)
[2021-11-23] MEDS: Polyethylene Glycol 3350 17 GM Packet PO SCH (09:04)
[2021-11-23] MEDS: Saccharomyces boulardii 250 MG CAP PO SCH (09:04)
[2021-11-23] MEDS: Senokot S 8.6-50 MG TAB PO SCH ×2 (09:05→21:47)
[2021-11-23] MEDS ORDERED: Lactated Ringer's 1,000 ML IV SCH (10:30)
[2021-11-23] MEDS: Cyclobenzaprine 10 MG TAB PO PRN ×2 (10:41→18:49)
[2021-11-23] MEDS: HYDROcodone/Acetaminophen 5/325 mg Tablet PO PRN ×2 (10:42→21:23)
[2021-11-23] MEDS: Scopolamine 1.5 mg/72 hour Patch TD SCH (12:07)
[2021-11-23] MEDS: cefTRIAXone\\ROCEPHIN 2 GM in Sodium Chloride 0.9% 100 ML IVPB SCH (13:55)
[2021-11-24] MEDS: HYDROcodone/Acetaminophen 7.5/325 mg Tablet PO SCH ×4 (00:43→18:48)
[2021-11-24] MEDS: Sodium Chloride 0.9% 1,000 ML IV SCH ×2 (00:46→10:55)
[2021-11-24] MEDS: Levothyroxine Sodium 100 MCG TAB PO SCH (05:48)
[2021-11-24] MEDS: Ondansetron PF 4 MG/2 ML Vial IVP PRN (06:27)
[2021-11-24] MEDS: Bisoprolol Fumarate/HCTZ 5 mg/6.25 mg Tablet PO SCH (08:58)
[2021-11-24] MEDS: Ascorbic Acid 500 mg Chewable Tablet PO SCH ×2 (08:59→22:52)
[2021-11-24] MEDS: Gabapentin 300 MG CAP PO SCH ×3 (08:59→22:50)
[2021-11-24] MEDS: Saccharomyces boulardii 250 MG CAP PO SCH (08:59)
[2021-11-24] MEDS: Ferrous Sulfate 325 MG TAB PO SCH ×2 (09:00→16:11)
[2021-11-24] MEDS: Polyethylene Glycol 3350 17 GM Packet PO SCH (09:01)
[2021-11-24] MEDS: Heparin 5,000 UNITS/ML VIAL SC SCH ×3 (09:01→22:51)
[2021-11-24] MEDS: cefTRIAXone\\ROCEPHIN 2 GM in Sodium Chloride 0.9% 100 ML IVPB SCH (12:18)
[2021-11-24] MEDS: traMADol HCl 50 MG TAB PO PRN ×2 (12:21→22:51)
[2021-11-24] MEDS: Senokot S 8.6-50 MG TAB PO SCH (16:10)
[2021-11-24] MEDS: Cyclobenzaprine 10 MG TAB PO PRN (22:54)
[2021-11-25] MEDS: Senokot S 8.6-50 MG TAB PO SCH ×3 (00:08→20:31)
[2021-11-25] MEDS: HYDROcodone/Acetaminophen 7.5/325 mg Tablet PO SCH ×5 (01:33→23:32)
[2021-11-25] MEDS: Sodium Chloride 0.9% 1,000 ML IV SCH ×3 (01:33→18:49)
[2021-11-25] MEDS: Levothyroxine Sodium 100 MCG TAB PO SCH (07:12)
[2021-11-25] MEDS: Saccharomyces boulardii 250 MG CAP PO SCH (10:02)
[2021-11-25] MEDS: Ferrous Sulfate 325 MG TAB PO SCH ×2 (10:02→18:49)
[2021-11-25] MEDS: Gabapentin 300 MG CAP PO SCH ×3 (10:02→20:31)
[2021-11-25] MEDS: Ascorbic Acid 500 mg Chewable Tablet PO SCH ×2 (10:03→20:31)
[2021-11-25] MEDS: Polyethylene Glycol 3350 17 GM Packet PO SCH (10:04)
[2021-11-25] MEDS: Bisoprolol Fumarate/HCTZ 5 mg/6.25 mg Tablet PO SCH (10:04)
[2021-11-25] MEDS: Heparin 5,000 UNITS/ML VIAL SC SCH ×3 (10:04→20:31)
[2021-11-25] MEDS: traMADol HCl 50 MG TAB PO PRN (10:34)
[2021-11-25] MEDS: cefTRIAXone\\ROCEPHIN 2 GM in Sodium Chloride 0.9% 100 ML IVPB SCH (14:05)
[2021-11-25] MEDS: HYDROcodone/Acetaminophen 5/325 mg Tablet PO PRN (20:33)
[2021-11-26] MEDS: Sodium Chloride 0.9% 1,000 ML IV SCH ×2 (03:41→13:52)
[2021-11-26] MEDS: Levothyroxine Sodium 100 MCG TAB PO SCH (05:18)
[2021-11-26] MEDS: HYDROcodone/Acetaminophen 7.5/325 mg Tablet PO SCH ×3 (05:18→17:29)
[2021-11-26 05:45] LABS: #Basophils 0.1 thou/uL (0.0-0.2); #Eosinphils 0.2 thou/uL (0.0-0.7); #Lymphocytes 1.4 thou/uL (1.20-3.40); #Monocytes 1.3 thou/uL (0.11-0.59); #Neutrophils 8.9 thou/uL (1.40-6.50); %Basophils 0.5 % (0.0-1.0); %Eosinophils 1.4 % (0.0-10.0); %Lymphocytes 11.6 % (21.0-51.0); %Monocytes 10.8 % (0.0-10.0); %Neutrophils 75.8 % (42.0-75.0); Hemoglobin 8.8 g/dL (12.0-16.0); Mean Corpuscular HGB CONC 32.1 g/dL (32.0-36.0); Mean Corpuscular Hemoglobin 31.5 pg (27.0-31.0); Mean Platelet Volume 6.8 fL (7.4-10.4); Platelet Count 626 thou/uL (130-400); RBC Distribution Width 14.7 % (11.5-14.5); Red Blood Cell (RBC) Count 2.79 mill/uL (4.20-5.40); White Blood Cell (WBC) Count 11.7 thou/uL (4.8-10.8)
[2021-11-26 06:02] LABS: Anion Gap 11 mmol/L (10-20); BUN (Urea Nitrogen) 16 mg/dL (9.8-20.1); Calc. Creatinine Clearance 90 mL/min (70-130); Calcium 8.5 mg/dL (7.8-10.44); Carbon Dioxide 26 mmol/L (23-31); Chloride 105 mmol/L (98-107); Glucose 97 mg/dL (80-115); Magnesium 2.1 mg/dL (1.6-2.6); Potassium 3.2 mmol/L (3.5-5.1); Sodium 139 mmol/L (136-145)
[2021-11-26] MEDS: Polyethylene Glycol 3350 17 GM Packet PO SCH (08:47)
[2021-11-26] MEDS: Cyclobenzaprine 10 MG TAB PO PRN ×2 (08:48→20:44)
[2021-11-26] MEDS: Saccharomyces boulardii 250 MG CAP PO SCH (08:48)
[2021-11-26] MEDS: Senokot S 8.6-50 MG TAB PO SCH ×2 (08:48→20:49)
[2021-11-26] MEDS: Ferrous Sulfate 325 MG TAB PO SCH ×2 (08:48→17:29)
[2021-11-26] MEDS: Ascorbic Acid 500 mg Chewable Tablet PO SCH ×2 (08:48→20:45)
[2021-11-26] MEDS: Heparin 5,000 UNITS/ML VIAL SC SCH (08:48)
[2021-11-26] MEDS: Gabapentin 300 MG CAP PO SCH ×3 (08:49→20:46)
[2021-11-26] MEDS: Bisoprolol Fumarate/HCTZ 5 mg/6.25 mg Tablet PO SCH (08:49)
[2021-11-26] MEDS ORDERED: Potassium Chloride 20 MEQ TAB PO SCH (09:00)
[2021-11-26] MEDS: Enoxaparin Sodium 40 MG/0.4 ML SYRINGE SC SCH (09:07)
[2021-11-26] MEDS: Aspirin 81 mg Enteric Coated Tablet PO SCH (09:53)
[2021-11-26] MEDS: Scopolamine 1.5 mg/72 hour Patch TD SCH (12:31)
[2021-11-26] MEDS: cefTRIAXone\\ROCEPHIN 2 GM in Sodium Chloride 0.9% 100 ML IVPB SCH (13:54)
[2021-11-26] MEDS: HYDROcodone/Acetaminophen 5/325 mg Tablet PO PRN (20:45)
[2021-11-27] MEDS: HYDROcodone/Acetaminophen 7.5/325 mg Tablet PO SCH ×5 (00:27→22:59)
[2021-11-27] MEDS: Sodium Chloride 0.9% 1,000 ML IV SCH ×3 (00:30→16:54)
[2021-11-27] MEDS: Levothyroxine Sodium 100 MCG TAB PO SCH (06:01)
[2021-11-27] MEDS: Ferrous Sulfate 325 MG TAB PO SCH ×2 (09:07→17:03)
[2021-11-27] MEDS: Ascorbic Acid 500 mg Chewable Tablet PO SCH ×2 (09:07→21:22)
[2021-11-27] MEDS: Aspirin 81 mg Enteric Coated Tablet PO SCH (09:07)
[2021-11-27] MEDS: Senokot S 8.6-50 MG TAB PO SCH ×2 (09:07→22:04)
[2021-11-27] MEDS: Gabapentin 300 MG CAP PO SCH ×3 (09:07→21:22)
[2021-11-27] MEDS: Saccharomyces boulardii 250 MG CAP PO SCH (09:07)
[2021-11-27] MEDS: Bisoprolol Fumarate/HCTZ 5 mg/6.25 mg Tablet PO SCH (09:07)
[2021-11-27] MEDS: Polyethylene Glycol 3350 17 GM Packet PO SCH (09:08)
[2021-11-27] MEDS: Enoxaparin Sodium 40 MG/0.4 ML SYRINGE SC SCH (09:08)
[2021-11-27] MEDS: Cyclobenzaprine 10 MG TAB PO PRN ×3 (09:10→22:57)
[2021-11-27] MEDS: HYDROcodone/Acetaminophen 5/325 mg Tablet PO PRN (21:28)
[2021-11-28] MEDS: Sodium Chloride 0.9% 1,000 ML IV SCH ×2 (04:39→18:37)
[2021-11-28] MEDS: HYDROcodone/Acetaminophen 7.5/325 mg Tablet PO SCH ×3 (06:19→18:29)
[2021-11-28] MEDS: Levothyroxine Sodium 100 MCG TAB PO SCH (06:19)
[2021-11-28] MEDS: Ferrous Sulfate 325 MG TAB PO SCH ×2 (08:47→16:38)
[2021-11-28] MEDS: Aspirin 81 mg Enteric Coated Tablet PO SCH (08:48)
[2021-11-28] MEDS: Ascorbic Acid 500 mg Chewable Tablet PO SCH ×2 (08:48→20:20)
[2021-11-28] MEDS: Gabapentin 300 MG CAP PO SCH ×3 (08:48→20:20)
[2021-11-28] MEDS: Saccharomyces boulardii 250 MG CAP PO SCH (08:49)
[2021-11-28] MEDS: Enoxaparin Sodium 40 MG/0.4 ML SYRINGE SC SCH (08:56)
[2021-11-28] MEDS: Senokot S 8.6-50 MG TAB PO SCH ×2 (08:56→20:21)
[2021-11-28] MEDS: Polyethylene Glycol 3350 17 GM Packet PO SCH (08:56)
[2021-11-28] MEDS: Bisoprolol Fumarate/HCTZ 5 mg/6.25 mg Tablet PO SCH (09:00)
[2021-11-28] MEDS: Cyclobenzaprine 10 MG TAB PO PRN (20:20)
[2021-11-28] MEDS: HYDROcodone/Acetaminophen 5/325 mg Tablet PO PRN (20:20)
[2021-11-29] MEDS: HYDROcodone/Acetaminophen 7.5/325 mg Tablet PO SCH ×4 (01:19→17:56)
[2021-11-29] MEDS: Sodium Chloride 0.9% 1,000 ML IV SCH (01:20)
[2021-11-29] MEDS: Levothyroxine Sodium 100 MCG TAB PO SCH (05:31)
[2021-11-29] MEDS: Ferrous Sulfate 325 MG TAB PO SCH ×4 (08:45→20:57)
[2021-11-29] MEDS: Gabapentin 300 MG CAP PO SCH ×3 (08:46→20:57)
[2021-11-29] MEDS: Saccharomyces boulardii 250 MG CAP PO SCH (08:47)
[2021-11-29] MEDS: Ascorbic Acid 500 mg Chewable Tablet PO SCH ×2 (08:47→20:57)
[2021-11-29] MEDS: Bisoprolol Fumarate/HCTZ 5 mg/6.25 mg Tablet PO SCH (08:47)
[2021-11-29] MEDS: Aspirin 81 mg Enteric Coated Tablet PO SCH (08:47)
[2021-11-29] MEDS: Polyethylene Glycol 3350 17 GM Packet PO SCH (08:56)
[2021-11-29] MEDS: Senokot S 8.6-50 MG TAB PO SCH ×2 (08:56→20:58)
[2021-11-29] MEDS: Enoxaparin Sodium 40 MG/0.4 ML SYRINGE SC SCH (09:00)
[2021-11-29] MEDS: Scopolamine 1.5 mg/72 hour Patch TD SCH (12:38)
[2021-11-29] MEDS: Cyclobenzaprine 10 MG TAB PO PRN (20:56)
[2021-11-29] MEDS: HYDROcodone/Acetaminophen 5/325 mg Tablet PO PRN (20:57)
[2021-11-30] MEDS: HYDROcodone/Acetaminophen 5/325 mg Tablet PO PRN ×2 (02:02→21:34)
[2021-11-30] MEDS: HYDROcodone/Acetaminophen 7.5/325 mg Tablet PO SCH ×4 (02:04→18:33)
[2021-11-30] MEDS: Levothyroxine Sodium 100 MCG TAB PO SCH (05:47)
[2021-11-30] MEDS: Bisoprolol Fumarate/HCTZ 5 mg/6.25 mg Tablet PO SCH (09:22)
[2021-11-30] MEDS: Ascorbic Acid 500 mg Chewable Tablet PO SCH ×2 (09:23→21:35)
[2021-11-30] MEDS: Gabapentin 300 MG CAP PO SCH ×3 (09:23→21:34)
[2021-11-30] MEDS: Enoxaparin Sodium 40 MG/0.4 ML SYRINGE SC SCH (09:23)
[2021-11-30] MEDS: Aspirin 81 mg Enteric Coated Tablet PO SCH (09:24)
[2021-11-30] MEDS: Ferrous Sulfate 325 MG TAB PO SCH ×2 (09:24→21:35)
[2021-11-30] MEDS: Polyethylene Glycol 3350 17 GM Packet PO SCH (09:25)
[2021-11-30] MEDS: Senokot S 8.6-50 MG TAB PO SCH ×2 (09:25→21:36)
[2021-12-01] MEDS: HYDROcodone/Acetaminophen 7.5/325 mg Tablet PO SCH ×5 (00:34→23:11)
[2021-12-01] MEDS: Levothyroxine Sodium 100 MCG TAB PO SCH (06:00)
[2021-12-01] MEDS: Ferrous Sulfate 325 MG TAB PO SCH ×2 (09:42→20:33)
[2021-12-01] MEDS: Ascorbic Acid 500 mg Chewable Tablet PO SCH ×2 (09:42→20:33)
[2021-12-01] MEDS: Bisoprolol Fumarate/HCTZ 5 mg/6.25 mg Tablet PO SCH (09:42)
[2021-12-01] MEDS: Enoxaparin Sodium 40 MG/0.4 ML SYRINGE SC SCH (09:42)
[2021-12-01] MEDS: Gabapentin 300 MG CAP PO SCH ×3 (09:43→20:32)
[2021-12-01] MEDS: Aspirin 81 mg Enteric Coated Tablet PO SCH (09:43)
[2021-12-01] MEDS: Polyethylene Glycol 3350 17 GM Packet PO SCH (09:46)
[2021-12-01] MEDS: Senokot S 8.6-50 MG TAB PO SCH ×2 (09:46→20:35)
[2021-12-01] MEDS: HYDROcodone/Acetaminophen 5/325 mg Tablet PO PRN ×2 (14:21→20:34)
[2021-12-02] MEDS: HYDROcodone/Acetaminophen 7.5/325 mg Tablet PO SCH ×4 (05:41→23:30)
[2021-12-02] MEDS: Levothyroxine Sodium 100 MCG TAB PO SCH (05:42)
[2021-12-02] MEDS: Aspirin 81 mg Enteric Coated Tablet PO SCH (08:49)
[2021-12-02] MEDS: traMADol HCl 50 MG TAB PO PRN ×2 (08:49→18:10)
[2021-12-02] MEDS: Ferrous Sulfate 325 MG TAB PO SCH ×2 (08:50→20:40)
[2021-12-02] MEDS: Gabapentin 300 MG CAP PO SCH ×3 (08:50→20:40)
[2021-12-02] MEDS: Senokot S 8.6-50 MG TAB PO SCH ×2 (08:51→20:41)
[2021-12-02] MEDS: Ascorbic Acid 500 mg Chewable Tablet PO SCH ×2 (08:51→20:40)
[2021-12-02] MEDS: Enoxaparin Sodium 40 MG/0.4 ML SYRINGE SC SCH (08:51)
[2021-12-02] MEDS: Polyethylene Glycol 3350 17 GM Packet PO SCH (08:53)
[2021-12-02] MEDS: Bisoprolol Fumarate/HCTZ 5 mg/6.25 mg Tablet PO SCH (12:36)
[2021-12-02] MEDS: Scopolamine 1.5 mg/72 hour Patch TD SCH (12:38)
[2021-12-02 15:38] VITALS: BMI 31.6
[2021-12-02] MEDS: Cyclobenzaprine 10 MG TAB PO PRN (20:39)
[2021-12-03 04:07] VITALS: TEMP 98.5
[2021-12-03] MEDS: HYDROcodone/Acetaminophen 7.5/325 mg Tablet PO SCH ×2 (05:30→16:30)
[2021-12-03] MEDS: Levothyroxine Sodium 100 MCG TAB PO SCH (05:30)
[2021-12-03 08:07] VITALS: BP 153/75
[2021-12-03] MEDS: Enoxaparin Sodium 40 MG/0.4 ML SYRINGE SC SCH (09:05)
[2021-12-03] MEDS: Gabapentin 300 MG CAP PO SCH ×2 (09:06→16:29)
[2021-12-03] MEDS: Aspirin 81 mg Enteric Coated Tablet PO SCH (09:07)
[2021-12-03] MEDS: Ascorbic Acid 500 mg Chewable Tablet PO SCH (09:07)
[2021-12-03] MEDS: Polyethylene Glycol 3350 17 GM Packet PO SCH (09:08)
[2021-12-03] MEDS: Ferrous Sulfate 325 MG TAB PO SCH (09:08)
[2021-12-03] MEDS: Senokot S 8.6-50 MG TAB PO SCH (09:09)
[2021-12-03] MEDS: HYDROcodone/Acetaminophen 5/325 mg Tablet PO PRN (09:16)
[2021-12-03] MEDS: traMADol HCl 50 MG TAB PO PRN (13:12)
[2021-12-03] MEDS: Bisoprolol Fumarate/HCTZ 5 mg/6.25 mg Tablet PO SCH (16:28)
== END 2021-12-03 13:15 | DRG 551 ==
LOC: ERS 23:17 → SURG B 11-14 01:22 → CCU 11-14 08:11 → SURG A 11-15 17:02
PROVIDERS: ADMIT Surgery; ATTEND Surgery
PROC: 30233K1 Transfusion of Nonautologous Frozen Plasma into Peripheral Vein, Percutaneous Approach (ICD-10-PCS; principal; 2021-11-14)
PROC: 30233N1 Transfusion of Nonautologous Red Blood Cells into Peripheral Vein, Percutaneous Approach (ICD-10-PCS; 2021-11-14)
PROC: 30233M1 Transfusion of Nonautologous Plasma Cryoprecipitate into Peripheral Vein, Percutaneous Approach (ICD-10-PCS; 2021-11-14)
DX: S32.10XA Unspecified fracture of sacrum, initial encounter for closed fracture (principal); J15.9 Unspecified bacterial pneumonia; J96.01 Acute respiratory failure with hypoxia; S22.41XA Multiple fractures of ribs, right side, initial encounter for closed fracture; N39.0 Urinary tract infection, site not specified; N17.9 Acute kidney failure, unspecified; D62 Acute posthemorrhagic anemia; Z20.822 Contact with and (suspected) exposure to COVID-19; S30.1XXA Contusion of abdominal wall, initial encounter; I10 Essential (primary) hypertension; F41.9 Anxiety disorder, unspecified; K25.9 Gastric ulcer, unspecified as acute or chronic, without hemorrhage or perforation; E89.0 Postprocedural hypothyroidism; G43.909 Migraine, unspecified, not intractable, without status migrainosus; V49.9XXA Car occupant (driver) (passenger) injured in unspecified traffic accident, initial encounter; Z88.1 Allergy status to other antibiotic agents; Y92.411 Interstate highway as the place of occurrence of the external cause; Z79.890 Hormone replacement therapy; Z79.899 Other long term (current) drug therapy; Z90.49 Acquired absence of other specified parts of digestive tract
CPT/HCPCS: 36415; 36430; 70450; 71045; 71260; 72125; 74018; 74177; 80048; 80053; 80076; 81001; 82533; 82550; 83605; 83690; 83735; 83880; 84100; 84484; 85025; 85060; 85384; 85610; 85730; 86850; 86900; 86901; 87077; 87086; 87186; 93005; 93010; 93306; 94640; 96374; 96375; C9113; G0390; J0696; J1644; J1650; J1720; J1885; J1940; J2060; J2270; J2405; J2550; J3475; J3490; J7050; J7120; J7620; P9012; P9016; P9045; P9059; Q9967; U0003; U0005